=== PATIENT | female | born 1955 | race Caucasian/White ===

== ENCOUNTER 2018-03-26 13:34 | Emergency (ER) | payer MEDICAID ==
[~2018-03-26] VITALS: Ht 160 cm; Wt 116.0 kg
[2018-03-26 13:49] VITALS: BP 141/78
[2018-03-26] MEDS ORDERED: IBUPROFEN 200 MG TABLET ONE (14:11)
[2018-03-26] MEDS ORDERED: IBUPROFEN 600 MG TABLET PO ONE (14:30)
== END 2018-03-26 15:32 | disposition home or self-care (01) ==
LOC: ED 15:15
DX: G89.11 Acute pain due to trauma (principal); M25.561 Pain in right knee; I48.91 Unspecified atrial fibrillation; W11.XXXA Fall on and from ladder, initial encounter; Y93.89 Activity, other specified; Y92.009 Unspecified place in unspecified non-institutional (private) residence as the place of occurrence of the external cause; Y99.8 Other external cause status
CPT/HCPCS: 29505; 99283

== ENCOUNTER 2018-05-17 09:12 | Emergency (ER) | payer MEDICAID ==
[~2018-05-17] VITALS: Ht 157.5 cm; Wt 106.3 kg
[2018-05-17 09:15] VITALS: BP 170/91
--- NOTE | 2018-05-17 10:01 | NUR ---
PT TO ROOM FROM LOBBY
--- NOTE | 2018-05-17 12:01 | NUR ---
Patient/Caregiver given discharge instructions and they have confirmed that they understand the instructions. Patient ambulatory with steady gait with walker.
== END 2018-05-17 12:02 | disposition home or self-care (01) ==
LOC: ED 10:26
DX: G89.11 Acute pain due to trauma (principal); M25.561 Pain in right knee; W11.XXXA Fall on and from ladder, initial encounter; Y93.89 Activity, other specified; Y92.009 Unspecified place in unspecified non-institutional (private) residence as the place of occurrence of the external cause; Y99.8 Other external cause status
CPT/HCPCS: 99284